=== PATIENT | female | born 1950 | race Caucasian/White ===

== ENCOUNTER 2023-06-29 15:34 | Emergency (ER) | payer OTHER, SELFPAY ==
[2023-06-29 15:43] VITALS: BP 138/79; PULSE 116; RESP 16; TEMP 36.9; O2SAT 98; BMI 27.3
--- NOTE | 2023-06-29 15:57 | ED_ITS ---
Discharge Plan Disposition Patient Disposition: Home, Self-Care Prescriptions Prescriptions: New ondansetron 4 mg tablet,disintegrating 4 mg PO Q6H PRN (Reason: nausea and vomiting) Qty: 10 0RF Referrals Follow up/Referrals: Mayank Venegas MD [Primary Care Provider] - See instructions Activity Restrictions/Add. Instructions Additional Instructions/Restrictions: Call your family doctor to establish care for this visit to the emergency department and schedule follow-up within 48 hours to ensure improvement. If you have any worsening of your condition or any other concerning signs or symptoms, return to the emergency department or your primary care doctor for further evaluation. Zofran every 6 hours as needed for nausea and vomiting, put on your tongue 10 to 15 minutes before trying to eat or drink to help with appetite. Clinical Impressions Clinical Impression: Vomiting and diarrhea Instructions Patient Instructions: DI for Diarrhea and Traveler's Diarrhea -- Adult, DI for Diarrhea and Traveler's Diarrhea -- Child, DI for Nausea -- Adult, DI for Nausea -- Child Discharge ED Provider: Robin Melgar General Adult HPI General Chief complaint: Nausea/Vomiting/Diarrhea Stated complaint: vomitting, diarrhea, chills Time Seen by Provider: 06/29/23 15:40 Mode of Arrival: Ambulatory Source of Information: Patient Limitations: No Limitations Description of Symptoms (Recalled from ER Triage Doc. by RN): pt states she woke up this am with N/V/D, chills and generalized abd cramping. History of Present Illness HPI narrative: 73-year-old female otherwise healthy presenting with vomiting and diarrhea. Started this morning, also having associated chills. No chest pain, shortness of breath, but patient having lightheadedness with changes in position. Vomi ting and diarrhea are nonbloody. No sick contacts she knows of. Related Data Previous Rx's Medication Instructions Recorded ondansetron 4 mg disintegrating 4 mg PO Q6H PRN nausea and 06/29/23 tablet vomiting #10 tabs Allergies Allergy/AdvReac Type Severity Reaction Status Date / Time Penicillins Allergy Verified 06/29/23 15:47 [facility] Disclaimer: The information contained in this section may have been updated after the patient was seen, as this information can be updated by other users. Social History Smoking Status: Never smoker alcohol intake: never current occupational status: retired Travel in the last 8 weeks: None ROS Obtained: Yes All systems reviewed & no additional complaints except as documented Physical Exam General General appearance: alert and in no apparent distress Head Head exam: atraumatic and normocephalic Eye Eye exam: Present normal appearance, PERRL and EOMI ENT ENT exam: Present mucous membranes moist Neck Neck exam: Present normal inspection, full ROM and trachea midline Respiratory Respiratory exam: Absent respiratory distress, wheezes, stridor, accessory muscle use or prolonged expiratory phase Cardiovascular Cardiovascular exam: Present normal rhythm Abdominal Exam Abdominal exam: Present soft; Absent distention, tenderness, guarding, rebound or rigidity Extremities Exam Extremities exam: Absent edema Neurological Exam Neurological exam: Present alert, oriented X3, CN II-XII intact and normal gait; Absent motor sensory deficit Skin Skin exam: Present warm and dry; Absent diaphoresis or erythema Medical Decision Making Medical Records Medical records reviewed: Yes I reviewed the patient's medical records. John Inquiry Pt receiving controlled substance: No John was queried for this patient: No Vital Signs: 06/29/23 15:43 06/29/23 16:00 06/29/23 16:20 Temperature 98.4 F Temperature Source Oral Pulse Rate 123 H 98 H Pulse Rate [Left] 116 H Respiratory Rate 16 Blood Pressure 97/72 L 110/66 Blood Pressure [Right Arm] 138/79 Blood Pressure Mean [Right Arm] 98 Blood Pressure Source [Right Arm] Automatic Cuff Blood Pressure Position [Right Arm] Sitting 02 Sat by Pulse Oximetry 98 97 97 Oxygen Delivery Method Room Air Room Air Room Air Lab Data Lab Results 06/29/23 15:45: WBC 17.1 H, RBC 4.70, Hgb 13.4, Hct 40.2, MCV 85.5, MCH 28.5, MCHC 33.3, RDW 14.5, Plt Count 458 H, MPV 8.0, Neut % (Auto) 94.4 H, Lymph % (Auto) 2.9 L, Pratt % (Auto) 1.3 L, Eos % (Auto) 1.3, Baso % (Auto) 0.1, Neut # (Auto) 16.1 H, Lymph # (Auto) 0.5 L, Pratt # (Auto) 0.2, Eos # (Auto) 0.2, Baso # (Auto) 0.0, Total Counted 100, Neutrophils % (Manual) 88 H, Lymphocytes % (Manual) 10, Monocytes % (Manual) 2, Platelet Estimate Slight increase, Hypochromasia 1+, Anisocytosis 1+, Sodium 139, Potassium 4.1, Chloride 105, Carbon Dioxide 28, Anion Gap 10.1, BUN 14, Creatinine 1.20 H, Estimated Creat Clear 43, Estimated GFR 44 L, Est GFR ( Amer) 54 L, Glucose 130 H, Calcium 9.6, Total Bilirubin 0.5, AST 37 H, ALT 28, Alkaline Phosphatase 97, Total Protein 7.9, Albumin 4.6, Globulin 3.3 H, Albumin/Globulin Ratio 1.4, Lipase 30 06/29/23 15:45 06/29/23 15:45 Orders (Tests/Meds): ED MEDICATIONS Discontinued Medications Generic Name Dose Route Start Last Admin Trade Name Freq PRN Reason Stop Dose Admin Lactated Ringer's 1,000 mls @ 999 mls/hr 06/29/23 15:53 06/29/23 15:59 Lactated Ringer's 1000 Ml Bag IV 06/29/23 16:53 999 mls/hr .Q1H1M ONE Administration Ondansetron HCl 4 mg 06/29/23 15:53 06/29/23 15:59 Ondansetron 4mg/2ml Vial IV 06/29/23 15:54 4 mg ONCE ONE Administration ORDERS Category Date Time Status CBC w/Auto Diff [Complete Blood Count Auto Diff] Stat Lab 06/29/23 15:45 Completed CMP [Comprehensive Metabolic Panel] Stat Lab 06/29/23 15:45 Completed Lipase Stat Lab 06/29/23 15:45 Completed Rapid PCR Covid and Flu A/B Stat Lab 06/29/23 16:15 Received Medical Decision Narrative: 73-year-old female otherwise healthy presenting with vomiting and diarrhea. Started this morning, also having associated chills. No chest pain, shortness of breath, but patient having lightheadedness with changes in position. Vomiting and diarrhea are nonbloody. No sick contacts she knows of. History was obtained via conversation with patient. On arrival, patient hemodynamically stable, alert, oriented x4, appropriate, GCS 15, moving all extremities spontaneously, pupils equal and reactive to light. Full physical exam performed and significant for well-appearing woman in no acute distress. Tachycardic with normal rhythm. Not actively retching or havi ng any complaints at the moment. Differential includes viral syndrome, pancreatitis, gastritis, gastroenteritis, enteritis, foodborne illness, among others. Patient was given 1 L fluid bolus, Zofran IV for symptomatic management and correction of underlying abnormalities. Workup independently interpreted and significant for dehydration with mild creatinine bump. Patient was given fluids for this. Nonactionable CBC, likely stress degranulation. See radiology read for full review of final results. On reevaluation, patient feeling much better after fluids and Zofran. Flu swab pending.Given patient presentation, workup, history, this most likely represents acute viral gastroenteritis versus other vomiting and diarrheal syndrome. Because patient at baseline without signs or symptoms of clinical decompensation, deemed appropriate for discharge. Results were relayed to patient who voiced understanding and were agreeable to outpatient management and follow up. At the time of discharge the patient was hemodynamically stable, tolerating PO, and mobilizing appropriately. Vitals improved after fluids, patient feeling much better, deemed appropriate for outpatient management. Sent home with Zofran. Critical Care Critical Care Time Critical Care Time: No
[2023-06-29] MEDS: ONDANSETRON 4MG/2ML VIAL 4 MG IV (15:59)
[2023-06-29] MEDS: LACTATED RINGERS 1000ML 1,000 ML 999 ML IV (15:59)
[2023-06-29 16:00] VITALS: BP 97/72; PULSE 123; O2SAT 97
[2023-06-29 16:05] LABS: Basophils % 0.1 % (0.1-2.0); Eosinophils # 0.2 K/mm3 (0.0-0.4); Eosinophils % 1.3 % (0.1-12.0); Hematocrit 40.2 % (37.0-47.0); Hemoglobin 13.4 g/dL (12.2-16.2); Lymphocytes # 0.5 K/mm3 (0.7-4.5); Lymphocytes % 2.9 % (10-50); Mean Corpuscular HGB Conc 33.3 g/dL (31.8-35.4); Mean Corpuscular Hemoglobin 28.5 pg (27.0-31.2); Mean Corpuscular Volume 85.5 fl (81-99); Monocytes # 0.2 K/mm3 (0.1-1.0); Monocytes % 1.3 % (1.7-9.3); Neutrophils # 16.1 K/mm3 (1.8-7.8); Neutrophils % 94.4 % (37.0-80.0); Platelet Count 458 K/mm3 (142-424); Red Cell Distribution Width 14.5 % (11.5-17.5); White Blood Count 17.1 K/mm3 (4.8-10.8)
[2023-06-29 16:06] LABS: Chloride 105 mmol/L (98-107); Potassium 4.1 mmoL/L (3.5-5.1); Sodium 139 mmol/L (136-145)
[2023-06-29 16:09] LABS: Alanine Aminotransferase 28 U/L (12-78); Albumin Level 4.6 g/dl (3.5-5.0); Albumin/Globulin Ratio 1.4 (1.1-1.8); Alkaline Phosphatase 97 U/L (38-126); Anion Gap 10.1 mEq/L (5-15); Aspartate Amino Transferase 37 U/L (14-36); Bilirubin,Total 0.5 mg/dl (0.2-1.3); Blood Urea Nitrogen 14 mg/dl (7-17); Carbon Dioxide 28 mmol/L (22.0-30.0); Creatinine Clearance Estimated 43 mL/min (50-200); Estimated Glomerular Filt Rate 44 ml/min (>60); GFR (African American) 54 ML/MIN (>60); Globulin 3.3 g/dL (1.3-3.2); Total Protein,Serum 7.9 g/dl (6.3-8.2)
[2023-06-29 16:10] LABS: Calcium 9.6 mg/dl (8.4-10.2); Glucose 130 mg/dl (74-100)
[2023-06-29 16:13] LABS: MANUAL DIFFERENTIAL MANUAL DIFFERENTIAL (MANUAL DIFF)
[2023-06-29 16:20] VITALS: BP 110/66; PULSE 98; O2SAT 97
[2023-06-29 16:20] LABS: Lipase 30 U/L (23-300)
[2023-06-29 17:05] LABS: Anisocytosis 1+; Hypochromasia 1+; Lymphocytes % 10 % (10-50); Monocytes % 2 % (2-9); Neutrophils % 88 % (42-76); Platelet Estimate Slight Increase; Total Cells Counted 100
[2023-06-29 17:15] LABS: Coronavirus 19, PCR Not Detected (NotDetected); Influenza A, PCR Not Detected (NotDetected); Influenza B, PCR Not Detected (NotDetected)
[2023-06-29 17:28] VITALS: BP 108/62; PULSE 75; RESP 16; TEMP 36.9
== END 2023-06-29 17:29 | disposition home or self-care (01) ==
PROVIDERS: Emergency Provider Emergency Medicine; PCP Family Medicine
DX: R11.2 Nausea with vomiting, unspecified (principal); R19.7 Diarrhea, unspecified; R68.83 Chills (without fever); R42 Dizziness and giddiness; E86.0 Dehydration
CPT/HCPCS: 80053; 83690; 85007; 85025; 87636; 96361; 96374; 99284; J2405